=== PATIENT | male | born 1995 | race Caucasian/White ===

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

== ENCOUNTER 2017-01-29 04:03 | Emergency (ER) | payer MEDICAID ==
[2017-01-29] MEDS ORDERED: PROPOFOL INJ 200 MG/20 ML VIAL IV ONE (04:15)
[2017-01-29] MEDS ORDERED: MORPHINE SULFATE 10 MG/ML INJ IV ONE (04:15)
[2017-01-29] MEDS ORDERED: NORMAL SALINE 1000 ML 1,000 ML IV ONE (04:16)
[2017-01-29] MEDS ORDERED: PROPOFOL 100 ML IV ONE (04:27)
--- NOTE | 2017-01-29 04:58 | RADIOLOGY REPORT (SQ) ---
EXAM DESCRIPTION: SHOULDER RIGHT 2 OR MORE VIEWS COMPLETED DATE/TIME: 01/29/2017 4:38 am REASON FOR STUDY: deformity noted COMPARISON: Left shoulder x-ray 07/10/2015. NUMBER OF VIEWS: Two views. TECHNIQUE: Frontal and Y- view images acquired of the right shoulder. LIMITATIONS: None. FINDINGS: MINERALIZATION: Normal. BONES: There is anterior dislocation of the shoulder. No obvious acute fracture is identified. VISUALIZED LUNGS AND RIBS: No pneumothorax. No displaced rib fracture. SOFT TISSUES: No radiopaque foreign body. IMPRESSION: Anterior dislocation of the right shoulder. TECHNICAL DOCUMENTATION: JOB ID: [id number] [place]-[id number] 2010 [employer]- All Rights Reserved
--- NOTE | 2017-01-29 05:07 | ER Document Report ---
ED General - General Chief Complaint: Shoulder Injury Stated Complaint: SHOULDER PAIN/DISLOCATION Time Seen by Provider: 01/29/17 04:14 Notes: Patient is a 21-year-old male presents with complaint of dislocation of the right shoulder. Patient says he has had multiple dislocations of the left shoulder. He said this is the first 20 side of his right shoulder. Patient says he was walking the shoulder against a door frame. He says it dislocated. He said there is no severe trauma. He has no other complaints of pain other than to his right shoulder. No numbness or weakness into his right hand. No history of connective tissue disorder. TRAVEL OUTSIDE OF THE [place] IN LAST 30 DAYS: No - Related Data Allergies/Adverse Reactions: No Known Allergies Allergy (Unverified 07/10/15 13:24) Past Medical History - Social History Smoking Status: Unknown if Ever Smoked Frequency of alcohol use: None Drug Abuse: None Family History: Reviewed & Not Pertinent Patient has suicidal ideation: No Patient has homicidal ideation: No Renal/ Medical History: Denies: Hx Peritoneal Dialysis - Immunizations Hx Diphtheria, Pertussis, Tetanus Vaccination: No Review of Systems - Review of Systems Notes: My Normal Review Basic REVIEW OF SYSTEMS: CONSTITUTIONAL : Denies fever, chills, or sweats. Denies recent illness. MUSCULOSKELETAL: Right shoulder dislocation. SKIN: Denies rash or skin lesions. NEUROLOGICAL: Denies sensory or motor loss. ALL OTHER SYSTEMS REVIEWED AND NEGATIVE. Physical Exam - Vital signs Vitals: Temp Pulse Resp BP Pulse Ox 98.3 F 106 H 18 148/81 H 99 01/29/17 04:07 01/29/17 04:07 01/29/17 04:07 01/29/17 04:07 01/29/17 04:07 - Notes Notes: General Appearance: Well nourished, alert, cooperative, no acute distress, moderate obvious discomfort. Vitals: reviewed, See vital signs table. Eyes: PERRL, EOMI, Conjuctiva clear Mouth: No decreasd moisture Neck: Supple, no neck tenderness Lungs: No wheezing, No rales, No rhonci, No accessory muscle use, good air exchange bilaterally. Heart: Normal rate, Regular rythm, No murmur, no rub Extremities: strength 5/5 in all extremities, good pulses in all extremities, of his deformity to the right shoulder consistent with dislocation. 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 Good distal sensation to touch of the entire hand. Good cap refill and good distal pulses. Skin: warm, dry, appropriate color, no rash Neuro: speech clear, oriented x 3, normal affect, responds appropriately to questions. Course - Re-evaluation Re-evalutation: 01/29/17 07:12 Patient was sedated and in the shoulder was easily relocated. Patient tolerated procedure well. Repeat x-ray shows appropriate relocation of the shoulder. Patient has had multiple dislocations without major trauma. I did talk to the patient and his mom about follow-up with his primary care doctor for workup of potential connective tissue disorder due to his history of recurrent dislocations. I will still have him follow-up with Dr. Olvera, the orthopedist. Encouraged to return to ER if he has numbness or weakness into his hand or recurrent dislocations. Patient agrees with plan will be discharged home. She given sling to wear. He is encouraged to still put his shoulder through some range of motion throughout the day so does not develop a frozen shoulder. Dictation of this chart was performed using voice recognition software; therefore, there may be some unintended grammatical errors. - Vital Signs Vital signs: Temp Pulse Resp BP Pulse Ox 98.3 F 94 H 14 121/80 96 01/29/17 04:07 01/29/17 04:37 01/29/17 05:20 01/29/17 05:20 01/29/17 05:20 Procedures - Conscious Sedation Conscious sedation Consent obtained: Yes Prior complications: Procedural sedation Normal healthy pt.: P1. - ASA Classification Airway Evaluation: Normal anatomy Mallampati Classification: Class 1 Used during procedure: Suction available, IV access obtained, Pulse ox on pt., gambling monitor on pt. Medications administered: Diprivan Reversal agents: None I personally performed/intraservice time: 30 min or less Complications: No Notes: Patient was given a total of 130 mg of propofol. This provided adequate sedation for right shoulder dislocation reduction. No complications. Hypoxemia. No hypotension. Patient recovered from sedation well. - Joint Reduction/Fracture Care right shoulder Consent obtained: Yes Conscious sedation: Yes Pre-procedure NV exam: Yes Fracture: Closed, Other - Right shoulder dislocation Manipulation comment: Traction with flexion and abduction of the shoulder Post-procedure NV exam: Yes Post-reduction x-ray: Joint reduced Reduction attempts: 1 Complications: No Notes: 01/29/17 05:07 Patient is neurovascularly intact pre-and post reduction. Discharge - Discharge Clinical Impression: Shoulder dislocation Qualifiers: Encounter type: initial encounter Laterality: right Qualified Code(s): S43.004A - Unspecified dislocation of right shoulder joint, initial encounter Condition: Good Disposition: HOME, SELF-CARE Additional Instructions: Shoulder Dislocation You've had a shoulder dislocation. Even after the shoulder is put back in place, careful care is needed to prevent further problems. As the shoulder dislocated, injury to the joint itself occurred. This must be allowed to heal. The usual treatment is a shoulder immobilizing sling. If this is your first dislocation, it must be left in place until the doctor allows you to remove it. This is important. Ice pack the shoulder frequently. One of the most important aspects of care for a shoulder dislocation is mobility exercises and strengthening exercises. You'll start these when it's safe to start moving the shoulder joint. Be sure to keep your follow-up appointments. If you develop numbness in the arm or hand, weakness of the hand muscles, arm swelling, or arm discoloration, call the doctor or return immediately. Due to your recurrent bilateral shoulder dislocations it is a good idea to follow-up with your doctor for reevaluation. They may decide to work you up for connective tissue disorders being that you have had multiple dislocations of joints. Please keep the sling on for at least one week. Please follow-up with the orthopedic doctor, Dr. Olvera, for reevaluation. Return to the ER if you have recurrent shoulder dislocations, numbness into your hand, or if you feel unwell. Forms: Return to Work Referrals: HENRRY LAGUNAS MD [Primary Care Provider] - Follow up in 3-5 days ELIZABETH OLVERA MD [ACTIVE STAFF] - Follow up in 1 week
--- NOTE | 2017-01-29 05:13 | RADIOLOGY REPORT (SQ) ---
EXAM DESCRIPTION: SHOULDER RIGHT 1 VIEW COMPLETED DATE/TIME: 01/29/2017 4:54 am REASON FOR STUDY: post reduction COMPARISON: Right shoulder x-ray 01/29/2017 at 04:28 hours. NUMBER OF VIEWS: One view. TECHNIQUE: Frontal image acquired of the right shoulder on 01/29/2017 at 04:45 hours. LIMITATIONS: None. FINDINGS: 1 view examination of the right shoulder demonstrate interval closed reduction of the prev iously described anterior dislocation of the right shoulder. Limited evaluation for acute fractures on this single view. IMPRESSION: Interval closed reduction of the anterior right shoulder dislocation. TECHNICAL DOCUMENTATION: JOB ID: [id number] [id number] 2010 [employer]- All Rights Reserved
[2017-01-29 05:34] VITALS: BP 121/80
== END 2017-01-29 05:34 | disposition home or self-care (01) ==
LOC: ER 04:03
PROC: 0RSJXZZ Reposition Right Shoulder Joint, External Approach (ICD-10-PCS; principal; 2017-01-29)
DX: S43.004A Unspecified dislocation of right shoulder joint, initial encounter (principal); X58.XXXA Exposure to other specified factors, initial encounter
CPT/HCPCS: 99283; 99153; 99152; 73020; 73030; 23650; L3650; J2270; J7030

== ENCOUNTER 2019-03-10 20:09 | Emergency (ER) | payer MEDICAID ==
[2019-03-10] MEDS ORDERED: FENTANYL CITRATE INJ/PF 100 MCG/2 ML AMPUL IV ONE (20:51)
[2019-03-10] MEDS ORDERED: ONDANSETRON HCL INJ/PF 4 MG/2 ML SDV IV ONE (20:51)
--- NOTE | 2019-03-10 21:04 | RADIOLOGY REPORT (SQ) ---
EXAM DESCRIPTION: XR SHOULDER 2 OR MORE VIEWS COMPLETED DATE/TME: 03/10/2019 00:00 CLINICAL HISTORY: 23 years, Male, injury; ? dislocation COMPARISON: None. EXAM DESCRIPTION: CLINICAL HISTORY: injury; ? dislocation COMPARISON: None FINDINGS: 2 view(s) submitted. There is an anterior inferior right humerus head dislocation and probable Hill-Sachs lesion. No other acute abnormality. IMPRESSION: Right shoulder dislocation with probable Hill-Sachs lesion of the humerus head.
[2019-03-10] MEDS ORDERED: PROPOFOL INJ 200 MG/20 ML VIAL IV ONE ×2 (21:11→21:53)
[2019-03-10] MEDS ORDERED: KETOROLAC TROMETHAMINE INJ/PF 30 MG/1 ML SDV IV ONE (22:27)
[2019-03-10 22:51] VITALS: BP 139/71
--- NOTE | 2019-03-10 22:59 | RADIOLOGY REPORT (SQ) ---
EXAM DESCRIPTION: XR SHOULDER 1 VIEW COMPLETED DATE/TME: 03/10/2019 22:01 CLINICAL HISTORY: post reduction COMPARISON: Same day earlier time FINDINGS: Single post reduction view of the right shoulder was submitted. There is anatomic alignment of the humeral head. There is no evidence of acute fracture or dislocation in this single view. IMPRESSION: No acute abnormalities.
--- NOTE | 2019-03-11 02:15 | ER Document Report ---
Entered by CYNTHIA CUEVAS SCRIBE 03/10/[id number] Acting as scribe for:YELENA CAMPBELL DO ED Extremity Problem, Upper - General Chief Complaint: Shoulder Injury Stated Complaint: RIGHT SHOULDER INJURY Time Seen by Provider: 03/10/19 20:49 Mode of Arrival: Ambulatory Information source: Patient Notes: Patient is a 23-year-old male who presents to the emergency department today with complaints of a right shoulder dislocation. Patient states he has dislocated his right shoulder 7 times in the past. Patient states he tried to put it back in place prior to arrival but it "made it worse". Patient states he was lifting a pitcher of tea over his head when the dislocation occurred. TRAVEL OUTSIDE OF THE [place] IN LAST 30 DAYS: No - Related Data Allergies/Adverse Reactions: No Known Allergies Allergy (Unverified 07/10/15 13:24) Past Medical History - General Information source: Patient - Social History Smoking Status: Current Every Day Smoker Cigarette use (# per day): Yes Frequency of alcohol use: None Drug Abuse: None Lives with: Family Family History: Reviewed & Not Pertinent Patient has suicidal ideation: No Patient has homicidal ideation: No Musculoskeletal Medical History: Reports Other - Hx of x7 right shoulder dislocations - Immunizations Hx Diphtheria, Pertussis, Tetanus Vaccination: No Review of Systems - Review of Systems Constitutional: No symptoms reported EENT: No symptoms reported Cardiovascular: No symptoms reported Respiratory: No symptoms reported Gastrointestinal: No symptoms reported Genitourinary: No symptoms reported Male Genitourinary: No symptoms reported Musculoskeletal: See HPI, Joint pain - right shoulder dislocation Skin: No symptoms reported Hematologic/Lymphatic: No symptoms reported Neurological/Psychological: No symptoms reported -: Yes All other systems reviewed and negative Physical Exam - Vital signs Vitals: Temp Pulse Resp BP Pulse Ox 98.1 F 80 18 108/64 100 03/10/19 20:43 03/10/19 20:43 03/10/19 20:43 03/10/19 20:43 03/10/19 20:43 - Notes Notes: Physical Exam: General: Alert, appears uncomfortable. HEENT: Normocephalic. Atraumatic. PERRL. Extraocular movements intact. Oropharynx clear. Neck: Supple. Non-tender. Respiratory: No respiratory distress. Clear and equal breath sounds bilaterally. Cardiovascular: Regular rate and rhythm. Abdominal: Normal Inspection. Non-tender. No distension. Normal Bowel Sounds. Back: No gross abnormalities. Extremities: Upper extremities: Obvious deformity to right shoulder. Distal sensation and pulses intact. Lower extremities: Normal inspection. No edema. Normal ROM. Neurological: Normal cognition. AAOx4. Normal speech. Psychological: Normal affect. Normal Mood. Skin: Warm. Dry. Normal color. Course - Re-evaluation Re-evalutation: Patient is a 23-year-old male with a history of recurrent shoulder dislocation who comes in having dislocated his right shoulder. Patient was sedated and joint was reduced with traction countertraction. Please see procedure note. He is to follow-up with orthopedics and avoid any overhead motion. He is to keep his sling on until he is able to follow-up with orthopedics except to take his arm up to prevent frozen shoulder syndrome. Understands agrees with plan. Neurovascularly intact. Stable for discharge. - Vital Signs Vital signs: Temp Pulse Resp BP Pulse Ox 98.6 F 80 19 139/71 H 100 03/10/19 22:51 03/10/19 20:43 03/10/19 22:31 03/10/19 22:31 03/10/19 22:31 Procedures - Conscious Sedation Conscious sedation Consent obtained: Yes Indication: right shoulder Prior complications: Procedural sedation Airway Evaluation: Normal anatomy Mallampati Classification: Class 1 Used during procedure: Suction available, IV access obtained, Pulse ox on pt., bus monitor on pt. Medications administered: Diprivan Reversal agents: None I personally performed/intraservice time: Sedation, 30 min or less Complications: No - Immobilization Right Shoulder Pre-Proc Neuro Vasc Exam: Normal Immobilizer type: Shoulder immobilizer Performed by: Provider assisted, PCT Post-Proc Neuro Vasc Exam: Normal, Unchanged from pre-exam Alignment checked and good: Yes - Joint Reduction/Fracture Care Right Shoulder Consent obtained: Yes Conscious sedation: Yes Pre-procedure NV exam: Yes Manipulation comment: Traction countertraction Post-procedure NV exam: Yes Post-reduction x-ray: Joint reduced Reduction attempts: 1 Complications: No Discharge - Discharge Clinical Impression: Recurrent dislocation, right shoulder Condition: Stable Disposition: HOME, SELF-CARE Instructions: Shoulder Dislocation ([facility]) Prescriptions: Naproxen Sodium [Aleve] 220 mg PO DAILY #14 capsule I personally performed the services described in the documentation, reviewed and edited the documentation which was dictated to the scribe in my presence, and it accurately records my words and actions.
== END 2019-03-10 22:51 | disposition home or self-care (01) ==
LOC: ER 20:09
DX: M24.411 Recurrent dislocation, right shoulder (principal); F17.210 Nicotine dependence, cigarettes, uncomplicated
CPT/HCPCS: 99283; 99152; 96374; 96375; 73020; 73030; 23650; L3650; J3010; J1885; J2405; J2704